=== PATIENT | male | born 1950 | race Caucasian/White ===

== ENCOUNTER 2018-04-24 16:44 | Inpatient (IN) | payer MEDICARE, OTHER ==
[2018-04-24 17:03] LABS: #Basophils 0.1 thou/uL (0.0-0.2); #Eosinphils 0.2 thou/uL (0.0-0.7); #Lymphocytes 1.1 thou/uL (1.20-3.40); #Monocytes 0.4 thou/uL (0.11-0.59); %Basophils 1.5 % (0.0-1.0); %Eosinophils 3.8 % (0.0-10.0); %Lymphocytes 22.9 % (21.0-51.0); %Monocytes 7.5 % (0.0-10.0); %Neutrophils 64.2 % (42.0-75.0); Hemoglobin 11.4 g/dL (14.0-18.0); Mean Corpuscular HGB CONC 31.2 g/dL (32.0-36.0); Mean Corpuscular Hemoglobin 26.2 pg (27.0-31.0); Mean Corpuscular Volume 84.1 fL (78.0-98.0); Mean Platelet Volume 8.1 fL (7.4-10.4); Platelet Count 334 thou/uL (130-400); RBC Distribution Width 13.8 % (11.5-14.5); Red Blood Cell (RBC) Count 4.33 mill/uL (4.70-6.10); White Blood Cell (WBC) Count 4.6 thou/uL (4.8-10.8)
[2018-04-24 17:10] LABS: Prothrombin Time 13.7 SEC (12.0-14.7)
[2018-04-24 17:17] LABS: ALT (SGPT) 21 U/L (8-55); AST (SGOT) 28 U/L (5-34); Albumin 4.7 g/dL (3.4-4.8); Alkaline Phosphatase 147 U/L (40-150); Anion Gap 21 mmol/L (10-20); BUN (Urea Nitrogen) 37 mg/dL (8.4-25.7); Bilirubin, Total 0.5 mg/dL (0.2-1.2); CK (CPK) 51 U/L (30-200); Calc. Creatinine Clearance 0 mL/min (70-130); Calcium 11.4 mg/dL (7.8-10.44); Carbon Dioxide 19 mmol/L (23-31); Chloride 100 mmol/L (98-107); Estimated GFR-MDRD 49; Globulin 4.6 g/dL (2.4-3.5); Glucose 151 mg/dL (80-115); Potassium 5.4 mmol/L (3.5-5.1); Protein, Total 9.3 g/dL (5.8-8.1); Sodium 135 mmol/L (136-145)
[2018-04-24 17:39] LABS: CKMB 1.1 ng/mL (0-6.6)
--- NOTE | 2018-04-24 18:01 | CT ---
CT HEAD NONCONTRAST 04/24/18 HISTORY: Altered mental status. Vascular disease. COMPARISON: 04/04/18. FINDINGS: There is no evidence of acute intracranial hemorrhage or infarct. Lobular encephalomalacia within the left cerebellar hemisphere and an infarct at the left middle cerebellar peduncle have continued to e volve since the prior study. Diffuse cortical atrophy and chronic ischemic small vessel disease are s table. No mass effect or shift of midline structures. Visualized paranasal sinuses remain well aerate d. IMPRESSION: Chronic type findings. No acute intracranial abnormalities are demonstrated. Findings were called to Dr. Manzanares in the Emergency Department at 1456 hours. Code CR POS: [facility]
[2018-04-24 19:58] LABS: Bilirubin Moderate (Negative); Blood, Urine Negative (Negative); Clarity CLEAR (Clear); Glucose, Urine (Dipstick) Negative (Negative); Leukocyte Trace (Negative); Nitrite Negative (Negative); Protein, Urine (Dipstick) 30 mg/dL (Neg-Trace); Specific Gravity, Urine 1.015 (1.002-1.036)
[2018-04-24 20:00] LABS: Bacteria/HPF None Seen HPF (None Seen); Pathc Cast-AUWi Flag 2.03 (0-2.49); RBC/HPF 0-3 HPF (0-3); Squamous Epithelial 0-3 HPF (0-3); WBC/HPF 0-3 HPF (0-3)
[2018-04-24 20:11] LABS: Hyaline Casts/LPF 7-10 HYALINE CAST LPF (0-3 Hyaline)
[2018-04-24 21:01] LABS: Troponin I 0.028 ng/mL (< 0.028)
[2018-04-24 23:32] LABS: Troponin I 0.037 ng/mL (< 0.028)
[2018-04-25] MEDS ORDERED: Acetaminophen 650 MG Suppository PR PRN (10:26)
[2018-04-25] MEDS ORDERED: Ondansetron PF 4 MG/2 ML Vial IVP PRN (10:26)
[2018-04-25] MEDS ORDERED: Dextrose 50% Abboject 50 ML SYRINGE SLOW IVP PRN (10:39)
[2018-04-25] MEDS ORDERED: Dextrose 5% in Water 1,000 ML IV PRN (10:39)
[2018-04-25] MEDS ORDERED: Bisacodyl 10 MG SUPP PR PRN (10:42)
[2018-04-25] MEDS ORDERED: Enoxaparin Sodium 30 MG/0.3 ML SYRINGE SC SCH (11:00)
[2018-04-25 11:30] LABS: Hemoglobin A1c 5.7 % (4.0-6.0)
[2018-04-25] MEDS: Sodium Chloride 0.9% 1,000 ML IV SCH ×2 (12:59→23:41)
--- NOTE | 2018-04-25 15:28 | PDOC.PN ---
- Subjective Encounter Start Date: 04/25/18 Encounter Start Time: 15:22 Mr. Chang was seen today and discussed with Padmini Murillo PA-C. Mr. Chang was brought to the hospital due to concern for declining mental status, and worsening weakness in the past week. His also is concerned that he has been having difficulty swallowing as well. She informs me that he began having strokes in February, and has had 3 prior strokes before his admission today. He was evaluated before by Dr. Xie, as was found to have Vertebral Basal disease. He was placed on aspirin, and a statin, initially, and Plavix was added about a week agao by his Primary Care Physician. - Objective MAR Reviewed: Yes Vital Signs & Weight: Vital Signs (12 hours) Temp Pulse Pulse Pulse Resp BP BP 04/25/18 14:05 97 88 163/78 H 04/25/18 11:34 97.7 F 96 16 04/25/18 08:14 97.2 F L 95 20 164/74 H 04/25/18 07:33 97.2 F L 95 20 04/25/18 04:00 97.3 F L 97 19 BP BP Pulse Ox 04/25/18 14:05 154/72 H 04/25/18 11:34 142/65 H 96 04/25/18 08:14 97 04/25/18 07:33 164/74 H 97 04/25/18 04:00 142/67 H 95 Weight Weight 199 lb 14.4 oz I&O: 04/24/18 04/25/18 04/26/18 06:59 06:59 06:59 Intake Total 0 Output Total 200 Balance 0 -200 Result Diagrams: 04/24/18 16:48 04/24/18 16:48 Additional Labs: Accuchecks 04/25/18 04/25/18 04/24/18 11:56 05:48 16:51 POC Glucose 127 H 105 159 H Phys Exam - Physical Examination + left conjunctival injection, weakness of the left upper eye lid Respiratory: no wheezing, no rales, no rhonchi, clear to auscultation bilateral Cardiovascular: RRR, no significant murmur, no rub Gastrointestinal: soft, non-tender, no distention, positive bowel sounds Musculoskeletal: no edema, pulses present + left lower extremity weakness Dx/Plan (1) Acute CVA (cerebrovascular accident) Code(s): I63.9 - CEREBRAL INFARCTION, UNSPECIFIED Status: Acute (2) Diabetes mellitus type 2 in nonobese Code(s): E11.9 - TYPE 2 DIABETES MELLITUS WITHOUT COMPLICATIONS Status: Acute (3) Hypertension Code(s): I10 - ESSENTIAL (PRIMARY) HYPERTENSION Status: Acute (4) Dysphagia due to recent stroke Code(s): I69.391 - DYSPHAGIA FOLLOWING CEREBRAL INFARCTION Status: Acute - Plan * Altered mental status and worsening weakness and dysphagia- this may be due to stroke in evolution,new CVA or possibly hemorrhagic conversion- await MRI results. Continue aspirin plavix and lipitor * Agree with Neurology Consultation * Dysphagia- discussed with the patient's who was at bedside- she would like alternate means of nutrition, and would like to pursue PEG tube placement. Will place an NG tube, and consult GI for PEG tube placement * HTN- re-start home medications once GI placed- have PRN medications available * DM- will hold Metformin for now, continue SSI
[2018-04-25] MEDS ORDERED: SYSTANE GEL EYE DROP 10 ML 10 GM BOT L EYE PRN (15:30)
--- NOTE | 2018-04-25 16:22 | RAD ---
CHEST 1 VIEW: Date: 04/25/18 HISTORY: Dysphagia. Evaluate for aspiration pneumonia. COMPARISON: None. FINDINGS: Slight elongation of aorta. Normal cardiac silhouette. Pulmonary vessels and hilum are normal. Costop hrenic angles are clear. No masses or consolidation. No pneumothorax or osseous abnormalities. IMPRESSION: No acute cardiopulmonary process. POS: [facility]
[2018-04-25] MEDS: OFLOXACIN EA EYE SCH (19:59)
[2018-04-25] MEDS: [UNRECOGNIZED DRUG - OTHER] L EYE PRN (20:00)
[2018-04-25] MEDS ORDERED: Lisinopril 20 MG TAB PER TUBE SCH (21:00)
--- NOTE | 2018-04-25 22:54 | HP ---
CHIEF COMPLAINT: Altered mental status, weight loss, generalized weakness. HISTORY OF PRESENT ILLNESS: The patient is a 68-year-old male with past medical history significant for hypertension, type 2 diabetes mellitus ( controlled with oral medications), and recent CVA x3 in February of this year, the most recent was March 15, 2018. History is obtained from conversation with his along with review of past medical records as patient has inability to verbalize more than yes or no and gesture. The tells me that actually the patient was quite functional up until February of this year when his strokes began. When he was discharged from hospital in February to a rehab, he was able to walk with his walker, converse, and perform most of his ADLs. On April 13, he did have a swallowing study performed as an outpatient and instructions were given to family members to have him sit upright when trying to eat or swallow his medication, per his . However, over the past week, the patient has been progressively coughing and shows obvious inability to swallow both food and his oral medications. The has also noticed that his gait is becoming more and more labored, and she has noticed worsening generalized weakness. Yesterday, his tells me that he was unable to get himself from the bed into the bathroom and it took both his daughter and his to help him. She reports a 30-pound weight loss since his first stroke was diagnosed on March 07. On arrival to the hospital, his EKG showed sinus tachycardia, no acute ST or T- wave changes. His creatinine was 1.44 and he was mildly hyperkalemic with a potassium serum of 5.4. Upon review of records, prior workup has included a CTA of the neck and head February 2018, which shows severe bilateral stenosis of the vertebral arteries along with [id number] plaquing of the right internal carotid artery estimated at 50% by CTA. Echocardiogram performed in February showed normal left ventricular systolic function and mild diastolic dysfunction. PAST MEDICAL HISTORY: Includes the aforementioned, hypertension, type 2 diabetes mellitus along with psoriatic arthritis which the patient has been on Enbrel. PAST SURGICAL HISTORY: The patient has had a left hand surgery in the past. SOCIAL HISTORY: The patient has a remote history of smoking in the past. He has no current alcohol or illicit drug use. 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 He moved to the area 5 months ago and lives with his . REVIEW OF SYSTEMS: CONSTITUTIONAL: Negative for fever and chills. Positive for weight loss. EYES: Positive for left eye pain and erythema secondary to corneal abrasion. ENT: Negative for injury, pain, and discharge. NECK: Negative for pain and swelling. CARDIOVASCULAR: Negative for chest pain, shortness of breath, and edema. RESPIRATORY: Negative for shortness of breath and wheezing, positive for cough. ABDOMEN/GASTROINTESTINAL: Negative for abdominal pain, nausea, vomiting. BACK: Negative for injury or pain. SKIN: Negative for injury or rash and discoloration. PHYSICAL EXAMINATION: VITAL SIGNS: Blood pressure 142/65, O2 saturation 96% on room air, respirations 16. The patient is afebrile. CONSTITUTIONAL: Awake and alert. Answering questions yes or no appropriately. HEAD AND FACE: Normocephalic, atraumatic. EYES: Left eye shows positive conjunctival erythema. NECK: Trachea midline. No bruits. No JVD. RESPIRATORY: Regular respiratory rate and pattern. Clear to auscultation bilaterally. No rhonchi or wheezes. ABDOMEN: Soft, nontender. Positive bowel sounds. SKIN: Warm and dry. No obvious lesions or rashes. CARDIOVASCULAR: S1, S2. Regular rhythm, mildly tachycardic. Soft systolic grade 1/6 murmur. NEUROLOGIC: Gait is ataxic. Intention tremor to the left hand. ALLERGIES: NO KNOWN DRUG ALLERGIES. HOME MEDICATIONS: 1. Ofloxacin ophthalmic solution one drop each eye q.i.d. 2. Propylene glycol one drop left eye p.r.n. 3. Tramadol 50 mg p.o. q.6 hours p.r.n. 4. Famotidine 20 mg p.o. b.i.d. 5. Tamsulosin 0.4 mg p.o. at bedtime. 6. Atorvastatin 40 mg at bedtime. 7. Metformin 1000 mg p.o. b.i.d. 8. Plavix 70 mg daily. 9. Aspirin 81 mg daily. 10. Amlodipine 10 mg p.o. daily. 11. Finasteride 5 mg daily. 12. Lisinopril 20 mg p.o. b.i.d. PERTINENT LABORATORY DATA: Hemoglobin 11.4, hematocrit 36.4. Sodium 135, potassium 5.4, BUN 37, creatinine 1.44, calcium 11.4. Troponin indeterminate at 0.036 and 0.037. ASSESSMENT: 1. Altered mental status and functional decline in the setting of worsening dehydration and poor oral intake. 2. History of recent CVA x3, most recent March 15, 2018, in the setting of severe bilateral vertebral stenosis. 3. Dysphagia secondary to above with resulting malnutrition. 4. Weight loss and failure to thrive. 5. Type 2 diabetes mellitus. 6. Hypertension. 7. Chronic anemia. 8. Indeterminate troponin in the setting of acute on chronic renal insufficiency. 9. Acute on chronic renal insufficiency secondary to dehydration, creatinine 1.44, baseline is somewhere around 0.9 per review of records. 10. Mild hyperkalemia. 11. History of psoriatic arthritis. 12. Left corneal abrasion. PLAN: The plan is for aggressive fluid resuscitation and close monitoring of his renal function and electrolytes. A long conversation was had with the family of this patient and the patient is a full code. They wish at this time to proceed with NG tube placement along with PEG tube placement. The risks and benefits of this procedure were discussed at length with the patient and his family. We will consult GI along with Dr. Xie from Neurology who has seen the patient in the past. We will hold Plavix in anticipation of PEG tube placement with Dr. Leon. We will continue his other home medications, avoiding any renal insults. Further recommendations based on hospital course. Job ID: [id number] [facility]
[2018-04-25] MEDS: Labetalol HCl 100 MG/20 ML VIAL SLOW IVP PRN (23:41)
[2018-04-26 06:11] LABS: ALT (SGPT) 13 U/L (8-55); AST (SGOT) 23 U/L (5-34); Albumin 3.7 g/dL (3.4-4.8); Alkaline Phosphatase 108 U/L (40-150); Anion Gap 17 mmol/L (10-20); BUN (Urea Nitrogen) 17 mg/dL (8.4-25.7); Bilirubin, Total 0.3 mg/dL (0.2-1.2); Calc. Creatinine Clearance 105 mL/min (70-130); Calcium 10.2 mg/dL (7.8-10.44); Carbon Dioxide 18 mmol/L (23-31); Chloride 110 mmol/L (98-107); Estimated GFR-MDRD 89; Globulin 3.6 g/dL (2.4-3.5); Glucose 94 mg/dL (80-115); Potassium 4.2 mmol/L (3.5-5.1); Protein, Total 7.3 g/dL (5.8-8.1); Sodium 141 mmol/L (136-145)
[2018-04-26] MEDS: Sodium Chloride 0.9% 1,000 ML IV SCH ×2 (08:54→19:28)
[2018-04-26] MEDS: [UNRECOGNIZED DRUG - OTHER] L EYE PRN ×4 (08:57→21:03)
[2018-04-26] MEDS: OFLOXACIN EA EYE SCH ×4 (08:57→21:03)
[2018-04-26] MEDS ORDERED: Clopidogrel Bisulfate 75 MG TAB PER TUBE SCH (09:00)
[2018-04-26] MEDS: Aspirin Chewable 81 MG TAB PER TUBE SCH (09:42)
[2018-04-26] MEDS: Atorvastatin Calcium 40 MG TAB PER TUBE SCH (09:42)
[2018-04-26] MEDS: Famotidine 20 MG TAB PER TUBE SCH (09:42)
[2018-04-26] MEDS: Amlodipine 10 MG TAB PER TUBE SCH (09:42)
--- NOTE | 2018-04-26 10:03 | PDOC.PN ---
- Subjective Encounter Start Date: 04/26/18 Encounter Start Time: 10:01 Mr. Chang was seen today in follow-up of acute CVA and worsening metabolic encephalopathy. He is awake and alert, and tring to answer a few questions. - Objective MAR Reviewed: Yes Vital Signs & Weight: Vital Signs (12 hours) Temp Pulse Resp BP Pulse Ox 04/26/18 09:42 73 04/26/18 07:46 97.6 F 73 20 160/75 H 94 L 04/26/18 04:00 97.3 F L 73 16 161/73 H 95 04/26/18 00:20 176/81 H 04/26/18 00:00 98.1 F 77 16 182/83 H 99 Weight Weight 199 lb I&O: 04/25/18 04/26/18 04/27/18 06:59 06:59 06:59 Intake Total 0 Output Total 425 Balance 0 -425 Result Diagrams: 04/24/18 16:48 04/26/18 05:11 Additional Labs: Accuchecks 04/25/18 04/25/18 04/25/18 19:33 17:02 11:56 POC Glucose 117 H 124 H 127 H Phys Exam - Physical Examination HEENT: PERRLA + conjunctival injection Respiratory: no wheezing, no rales, no rhonchi, clear to auscultation bilateral Cardiovascular: RRR, no significant murmur, no rub Gastrointestinal: soft, non-tender, no distention, positive bowel sounds Musculoskeletal: pulses present, edema present trace pedal edema Left lower extremity weakness Dx/Plan (1) Metabolic encephalopathy Code(s): G93.41 - METABOLIC ENCEPHALOPATHY Status: Acute (2) Acute CVA (cerebrovascular accident) Code(s): I63.9 - CEREBRAL INFARCTION, UNSPECIFIED Status: Acute (3) Diabetes mellitus type 2 in nonobese Code(s): E11.9 - TYPE 2 DIABETES MELLITUS WITHOUT COMPLICATIONS Status: Acute (4) Hypertension Code(s): I10 - ESSENTIAL (PRIMARY) HYPERTENSION Status: Acute (5) Dysphagia due to recent stroke Code(s): I69.391 - DYSPHAGIA FOLLOWING CEREBRAL INFARCTION Status: Acute - Plan * CVA with metabolic encephalopathy- still awaiting the official read on the MRI - either stroke in evolution, new CVA or hemorrhagic conversion * Await Neurology input * Dysphagia- plan is for PEG tube tomorrow- patient refused DHT placement in the interim * HTN - blood pressure is a bit elevated- he is NPO - will continue PRN medications * DM- blood glucose is stable
[2018-04-26] MEDS: Labetalol HCl 100 MG/20 ML VIAL SLOW IVP PRN (17:14)
--- NOTE | 2018-04-26 17:23 | PDOC.EVN ---
Event Note - Event Note Event Note: MRI results are not yet visible in the electronic record, however I spoke with the radiologist learning and development consultant who informs me that the MRI has been read. There is evidence of new infarction in the cerebellum, and right corpus collusom. Will await the remained of the report. I have left a message with the business analytics faculty member department.
[2018-04-26] MEDS ORDERED: Lorazepam 0.5 MG TAB PO PRN ×2 (17:51→17:52)
--- NOTE | 2018-04-26 22:30 | CON ---
DATE OF CONSULTATION: 04/26/2018 CONSULTING PHYSICIAN: Hospitalist Service IMPRESSION: 1. 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 2. 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 3. Prior bilateral cerebellar infarcts. 4. Diabetes. 5. Hypertension. PLAN: 1. Restart antiplatelet therapy after his PEG tube is placed. 2. Restart antihypertensives as well. 3. Continue management of the Lacy palsy with patching and Lacri-Lube. 4. Transfer to rehab after he is stabilized. HISTORY OF PRESENT ILLNESS: Mr. Chang is a 68-year-old man who was admitted in February with cerebellar infarcts. He was transferred over to rehab and started to report that two weeks ago he developed left facial paresis. This resulted in a secondary corneal abrasion. In the last few days, he became much more dysarthric. After admission, he has developed some progressive weakness on his left side. He denies any headache, nausea, vomiting, vertigo, headache, or new numbness. He apparently was having numbness on the left side of the face prior to the admission. MRI of the brain was reviewed, shows an acute area of infarction involving the posterior corpus callosum and prior ischemic injury to both cerebellum. On exam, he is alert and cooperative. His speech is severely dysarthric. There is facial weakness on the left including the brow, eye closure, and lower face. Sensation is subjectively decreased on the left side. Eye movements are intact. Tongue protrudes to the center. He has only 2/5 strength in the left arm and roughly 3/5 in the left leg. Plantar responses are upgoing. Gait is not testable. No abnormal movements are seen. Unfortunate gentleman who has had a series of problems over the last month. His new stroke is in a very unusual location, but relatively small, hold out a reasonable prognosis for recovery. Cerebellar infarcts should heal quite nicely with a bit of time. His left facial weakness due to a peripheral 7th nerve injury is not uncommon with diabetes, but usually has a good prognosis and may improve over the next 2-3 months. We would continue his prior treatment which essentially was maximum medical therapy at this point. Job ID: [id number]
[2018-04-27] MEDS: Lorazepam 2 MG/ML VIAL SLOW IVP PRN ×2 (00:48→20:40)
[2018-04-27 05:54] LABS: Anion Gap 16 mmol/L (10-20); BUN (Urea Nitrogen) 13 mg/dL (8.4-25.7); Calc. Creatinine Clearance 96 mL/min (70-130); Carbon Dioxide 19 mmol/L (23-31); Chloride 109 mmol/L (98-107); Estimated GFR-MDRD 81; Glucose 92 mg/dL (80-115); Potassium 4.1 mmol/L (3.5-5.1); Sodium 140 mmol/L (136-145)
--- NOTE | 2018-04-27 07:54 | CON ---
DATE OF CONSULTATION: 04/26/2018 REASON FOR CONSULTATION: Poor oral intake, generalized weakness, and possible dysphagia. I was asked to see the patient for possible endoscopic gastrostomy tube placement. HISTORY OF PRESENT ILLNESS: The patient was seen in the room along with the patient's who gives most of the history at this time. Mr. Mainor Chang is a very pleasant 68-year-old male who moved to this area about 5 months ago. His primary care doctor is Dr. Lennox Ocampo. The patient has a history of type 2 diabetes mellitus, hypertension. The patient has had CVA in February of 2018 and was placed on aspirin. The patient was seen by Dr. Xie in consultation. The patient apparently was in the rehab unit for a while and after he went home. He was doing actually well, ambulating and eating well. It looks apparently like he has had a stroke with altered mental status. Has slurriness of speech. The patient had not been eating very well over the last several days. The patient was hospitalized because of generalized weakness, altered mental status and also . The patient was started on Plavix a week ago by Dr. Lennox Ocampo. The patient had a CAT scan and MRI done as outpatient and was told to have worsening stroke and was placed on Plavix. The patient is also not able to eat well. When he tries to drink water, he coughs and chokes as well per the patient's . His oral intake is very poor. The patient is awake and alert, but does not really communicate very well. He is slow to talk. Does not have fevers. Most of the history was obtained from the patient's . MEDICAL ILLNESSES: 1. Type 2 diabetes mellitus. 2. Hypertension. 3. Psoriatic arthritis. 4. Recent CVA. PAST SURGICAL HISTORY: Left hand surgery in the past. SOCIAL HISTORY: The patient is a former smoker. No history of alcohol intake. REVIEW OF SYSTEMS: Unremarkable except for generalized weakness and altered mental status and oral dysphagia. PHYSICAL EXAMINATION: GENERAL: Appears comfortable. VITAL SIGNS: Afebrile, pulse is 78, blood pressure 142/63. HEENT: Conjunctivae, no icterus. NECK: Supple. No adenitis or thyromegaly noted. CARDIOVASCULAR SYSTEM: First and second heart sounds heard. LUNGS: Clear to auscultation. ABDOMEN: Soft. Abdomen is nontender. bowel sounds. No organomegaly or masses. EXTREMITIES: Reveal no edema. LABORATORY DATA: CBC; WBC 4600, hemoglobin 11.4, hematocrit 36.4, MCV 84.1, platelet count 334,000. Chemistry panel; sodium is 145, potassium 4.2, chloride 110, bicarb 18, BUN is 17, creatinine is 0.85. Calcium 10.2. LFTs are normal. Coagulation; PT is 13.7, INR is 1. CLINICAL IMPRESSION: A 68-year-old unfortunate male with cerebrovascular accident, dysphagia. He will definitely benefit from endoscopic gastrostomy placement. A long talk with the patient's and explained about the procedure in detail. The patient had not taken Plavix today and also the last couple of days. We will hold on Plavix and plan for EGD and PEG tube placement on 04/27/2018. Job ID: [id number]
[2018-04-27] MEDS ORDERED: Ondansetron HCl/PF 4 MG/2 ML Vial IVP PRN (08:54)
[2018-04-27] MEDS: Sodium Chloride 0.9% 1,000 ML IV SCH ×2 (11:52→20:40)
[2018-04-27] MEDS: Amlodipine 10 MG TAB PER TUBE SCH (11:53)
[2018-04-27] MEDS: OFLOXACIN EA EYE SCH ×4 (11:53→21:43)
[2018-04-27] MEDS: Famotidine 20 MG TAB PER TUBE SCH (11:53)
[2018-04-27] MEDS: Atorvastatin Calcium 40 MG TAB PER TUBE SCH (11:54)
[2018-04-27] MEDS ORDERED: Lidocaine 1% PF 5 ML VIAL ONE (13:45)
[2018-04-27] MEDS ORDERED: PROPOFOL 200 MG/20 ML VIAL ONE (13:45)
[2018-04-27] MEDS: [UNRECOGNIZED DRUG - OTHER] L EYE PRN ×3 (15:01→21:44)
--- NOTE | 2018-04-27 15:13 | PDOC.PN ---
- Subjective Encounter Start Date: 04/27/18 Encounter Start Time: 14:00 Mr. Chang was seen today in follow-up of acute CVA. He does not have any complaints. - Objective MAR Reviewed: Yes Vital Signs & Weight: Vital Signs (12 hours) Temp Pulse Resp BP Pulse Ox 04/27/18 11:53 60 04/27/18 11:26 98 F 60 20 158/72 H 98 04/27/18 09:35 95 04/27/18 07:45 97.9 F 70 20 161/71 H 94 L 04/27/18 04:42 158/71 H 04/27/18 04:00 97.4 F L 82 19 180/79 H 96 Weight Weight 198 lb 9.6 oz I&O: 04/26/18 04/27/18 04/28/18 06:59 06:59 06:59 Output Total 425 350 Balance -425 -350 Result Diagrams: 04/24/18 16:48 04/27/18 05:11 Additional Labs: Accuchecks 04/27/18 04/27/18 04/26/18 10:45 05:46 19:59 POC Glucose 116 H 95 123 H 04/26/18 16:51 POC Glucose 120 H Phys Exam - Physical Examination HEENT: PERRLA Respiratory: no wheezing, no rales, no rhonchi, clear to auscultation bilateral Cardiovascular: RRR, no significant murmur, no rub Gastrointestinal: soft, non-tender, positive bowel sounds Musculoskeletal: no edema Deviation from normal: + left 7th nerve palsy, and left leg weakness Dx/Plan (1) Metabolic encephalopathy Code(s): G93.41 - METABOLIC ENCEPHALOPATHY Status: Acute (2) Acute CVA (cerebrovascular accident) Code(s): I63.9 - CEREBRAL INFARCTION, UNSPECIFIED Status: Acute (3) Diabetes mellitus type 2 in nonobese Code(s): E11.9 - TYPE 2 DIABETES MELLITUS WITHOUT COMPLICATIONS Status: Acute (4) Hypertension Code(s): I10 - ESSENTIAL (PRIMARY) HYPERTENSION Status: Acute (5) Dysphagia due to recent stroke Code(s): I69.391 - DYSPHAGIA FOLLOWING CEREBRAL INFARCTION Status: Acute - Plan * Acute Cerebellar CVA- continue aspirin and statin therapy * Dyspaghia due to acute CVA- he has PEG tube placed, and tube feeds have been initiated * HTN- blood pressure medications have been re-started, and will trend * DM- blood glucose is stable * Discussed treatment going forward- his does not feel she can handle lifting him, and assisting him with ADL's at least while in his present condition- will place a custodial referral- for PT due to the new CVA.
[2018-04-27] MEDS ORDERED: Nitroglycerin 0.4 MG TAB (25 Tab Bottle) SL SCH (17:45)
[2018-04-27] MEDS: Aspirin Chewable 81 MG TAB PER TUBE SCH ×2 (17:57→19:13)
[2018-04-27 18:25] LABS: Troponin I 0.034 ng/mL (< 0.028)
[2018-04-27] MEDS ORDERED: Lisinopril 5 MG TAB PO SCH (18:55)
[2018-04-27] MEDS: Acetaminophen 325 MG TAB PO PRN (20:40)
--- NOTE | 2018-04-27 22:05 | OP ---
DATE OF PROCEDURE: 04/27/2018 PROCEDURES PERFORMED: 1. Esophagogastroduodenoscopy. 2. Endoscopic gastrostomy tube placement. PREOPERATIVE DIAGNOSIS: Dysphagia, . POSTOPERATIVE DIAGNOSES: 1. Hiatal hernia, otherwise normal exam. 2. Status post gastrostomy tube placement. DESCRIPTION OF PROCEDURE: The patient was placed on his back and the throat was anesthetized with viscous Xylocaine spray. The patient was given sedation. The patient was given IV Ancef 2 g before the procedure. A bite-block was placed. A Pentax video gastroscope under direct vision passed down the oropharynx to the GE junction into the stomach and subsequently into the descending duodenum. The duodenal bulb and descending duodenum, no pathology. The gastric antrum, incisura angularis, fundus or cardia, no pathology. He does have hiatal hernia. The gastrostomy tube site was marked by transillumination with it and also by applying finger pressure to confirm the right spot. The spot was cleaned and surgically prepped. The site was anesthetized with 1% Xylocaine infiltration. Over the site, a 16 Angiocath was advanced into the stomach. Through the Angiocath, a guidewire was advanced into the stomach. The guidewire was grasped with polypectomy snare and pulled outside the mouth. To the end of the guidewire protruding outside the mouth, a the gastrostomy tube was connected. The wire was pulled back retrograde and left in place. A 0.5 cm incision was made in skin to facilitate the passage of the tube. The patient was re-scoped again. No complication or any bleeding seen. The stomach decompressed and the scope was removed. RECOMMENDATION: 1. N.p.o. until 1:00 p.m. 2. Start tube feeding after 1:00 p.m. today. Job ID: [id number]
[2018-04-27 22:06] LABS: Troponin I 0.031 ng/mL (< 0.028)
[2018-04-28] MEDS ORDERED: diphenhydrAMINE 50 MG/ML VIAL IVP SCH (01:00)
[2018-04-28] MEDS: Acetaminophen 325 MG TAB PO PRN ×3 (03:20→21:07)
[2018-04-28] MEDS: Sodium Chloride 0.9% 1,000 ML IV SCH ×2 (06:52→17:24)
[2018-04-28] MEDS: Atorvastatin Calcium 40 MG TAB PER TUBE SCH (08:33)
[2018-04-28] MEDS: Lisinopril 5 MG TAB PER TUBE SCH (08:33)
[2018-04-28] MEDS: Amlodipine 10 MG TAB PER TUBE SCH (08:33)
[2018-04-28] MEDS: OFLOXACIN EA EYE SCH ×4 (08:34→21:06)
[2018-04-28] MEDS: Famotidine 20 MG TAB PER TUBE SCH (08:34)
[2018-04-28] MEDS: [UNRECOGNIZED DRUG - OTHER] L EYE PRN ×4 (08:54→21:06)
[2018-04-28] MEDS ORDERED: Lisinopril 5 MG TAB PO SCH (09:00)
[2018-04-28] MEDS: HumaLOG 300 UNITS/3 ML VIAL SC PRN ×3 (11:27→21:08)
--- NOTE | 2018-04-28 13:29 | PRG ---
DATE OF SERVICE: 04/28/2018 SUBJECTIVE: Mr. Chang is not able to give any history. Daughter at the bedside and nurses note he has done well with tube feeds and is tolerating tube feeds well. He had a PEG tube placed yesterday for dysphagia related to his CVA. Medications reviewed. OBJECTIVE: VITAL SIGNS: Temperature is 98, pulse 72, blood pressure 164/98, and respirations 16. ABDOMEN: The PEG tube is warm and dry with no evidence of drainage or discharge. Bumper was loosened. ASSESSMENT AND PLAN: Status post PEG tube. The daughter notes he picks at that and she is a little bit worried he will pick at the PEG tube. I have asked the nurses to place an abdominal binder on it. We will sign off and follow from a distance at this time. Job ID: [id number]
--- NOTE | 2018-04-28 13:38 | PDOC.PN ---
- Subjective Encounter Start Date: 04/28/18 Encounter Start Time: 10:30 Mr. Chang was seen today in follow-up of acute CVA . He does not have any complaints this morning. - Objective MAR Reviewed: Yes Vital Signs & Weight: Vital Signs (12 hours) Temp Pulse Pulse Pulse Resp BP BP 04/28/18 12:00 98.3 F 72 90 81 16 164/73 H 04/28/18 08:33 68 163/72 H 04/28/18 08:20 68 163/72 H 04/28/18 07:39 97.6 F 76 17 04/28/18 04:27 97.7 F 70 18 BP BP Pulse Ox Pulse Ox 04/28/18 12:00 169/72 H 164/98 H 95 96 04/28/18 08:33 97 04/28/18 08:20 04/28/18 07:39 171/73 H 97 04/28/18 04:27 161/72 H 96 Weight Weight 197 lb 7 oz I&O: 04/27/18 04/28/18 04/29/18 06:59 06:59 06:59 Intake Total 30 30 Output Total 350 Balance -350 30 30 Result Diagrams: 04/24/18 16:48 04/27/18 05:11 Additional Labs: Accuchecks 04/28/18 04/28/18 04/27/18 10:46 05:54 21:15 POC Glucose 191 H 153 H 146 H 04/27/18 16:39 POC Glucose 141 H Phys Exam - Physical Examination HEENT: PERRLA + conjunctival injection left eye Respiratory: no wheezing, no rales, no rhonchi, clear to auscultation bilateral Cardiovascular: RRR, no significant murmur, no rub Gastrointestinal: soft, non-tender, no distention, positive bowel sounds Musculoskeletal: pulses present, edema present trace pedal edema + left sided weakness, and left facial pararesis Dx/Plan (1) Acute CVA (cerebrovascular accident) Code(s): I63.9 - CEREBRAL INFARCTION, UNSPECIFIED Status: Acute (2) Metabolic encephalopathy Code(s): G93.41 - METABOLIC ENCEPHALOPATHY Status: Acute (3) Diabetes mellitus type 2 in nonobese Code(s): E11.9 - TYPE 2 DIABETES MELLITUS WITHOUT COMPLICATIONS Status: Acute (4) Hypertension Code(s): I10 - ESSENTIAL (PRIMARY) HYPERTENSION Status: Acute (5) Dysphagia due to recent stroke Code(s): I69.391 - DYSPHAGIA FOLLOWING CEREBRAL INFARCTION Status: Acute - Plan * 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 * Continue PT/OT * HTN- blood pressure has been elevated- will add Lisinopril * DM- blood glucose is stable * The patient has requested to go the [facility]
[2018-04-28] MEDS: Aspirin Chewable 81 MG TAB PER TUBE SCH (17:24)
[2018-04-28] MEDS: Tamsulosin HCl 0.4 MG CAP PO SCH (21:06)
[2018-04-28] MEDS: Lorazepam 2 MG/ML VIAL SLOW IVP PRN (21:09)
[2018-04-29] MEDS: Acetaminophen 325 MG TAB PO PRN ×2 (01:19→09:44)
[2018-04-29] MEDS ORDERED: diphenhydrAMINE 50 MG/ML VIAL IVP PRN (01:41)
[2018-04-29] MEDS: Sodium Chloride 0.9% 1,000 ML IV SCH ×2 (06:03→17:39)
[2018-04-29] MEDS: Lisinopril 5 MG TAB PER TUBE SCH (09:44)
[2018-04-29] MEDS: Atorvastatin Calcium 40 MG TAB PER TUBE SCH (09:45)
[2018-04-29] MEDS: Amlodipine 10 MG TAB PER TUBE SCH (09:45)
[2018-04-29] MEDS: OFLOXACIN EA EYE SCH ×4 (09:45→20:38)
[2018-04-29] MEDS: Famotidine 20 MG TAB PER TUBE SCH (09:45)
[2018-04-29] MEDS ORDERED: Milk Of Magnesia 30 ML UDCUP PO PRN (10:44)
[2018-04-29] MEDS: HumaLOG 300 UNITS/3 ML VIAL SC PRN ×3 (10:54→20:38)
--- NOTE | 2018-04-29 11:21 | PDOC.PN ---
- Subjective Encounter Start Date: 04/29/18 Encounter Start Time: 11:20 Mr. Chang was seen today in follow-up of acute CVA with left sided weakness and dysphagia. He indicates no concerns today - Objective MAR Reviewed: Yes Vital Signs & Weight: Vital Signs (12 hours) Temp Pulse Resp BP BP Pulse Ox 04/29/18 09:45 72 172/74 H 04/29/18 09:44 72 172/74 H 04/29/18 07:35 98.1 F 72 20 172/74 H 94 L 04/29/18 04:00 97.7 F 61 16 173/72 H 97 04/29/18 00:00 97.5 F L 74 16 175/80 H 96 Weight Weight 204 lb 5 oz I&O: 04/28/18 04/29/18 04/30/18 06:59 06:59 06:59 Intake Total 30 90 1660 Balance 30 90 1660 Result Diagrams: 04/24/18 16:48 04/27/18 05:11 Additional Labs: Accuchecks 04/29/18 04/29/18 04/28/18 10:30 05:54 21:04 POC Glucose 193 H 169 H 191 H 04/28/18 16:51 POC Glucose 186 H Phys Exam - Physical Examination HEENT: PERRLA conjunctival injection of the left eye Respiratory: no wheezing, no rales, no rhonchi, clear to auscultation bilateral Cardiovascular: RRR, no significant murmur, no rub Gastrointestinal: soft, non-tender, no distention, positive bowel sounds Musculoskeletal: pulses present, edema present trace pedal edema Left sided weakness, and left 7th nerve paresis Dx/Plan (1) Acute CVA (cerebrovascular accident) Code(s): I63.9 - CEREBRAL INFARCTION, UNSPECIFIED Status: Acute (2) Metabolic encephalopathy Code(s): G93.41 - METABOLIC ENCEPHALOPATHY Status: Acute (3) Diabetes mellitus type 2 in nonobese Code(s): E11.9 - TYPE 2 DIABETES MELLITUS WITHOUT COMPLICATIONS Status: Acute (4) Hypertension Code(s): I10 - ESSENTIAL (PRIMARY) HYPERTENSION Status: Acute (5) Dysphagia due to recent stroke Code(s): I69.391 - DYSPHAGIA FOLLOWING CEREBRAL INFARCTION Status: Acute - Plan * Acute CVA- with left sided weakness and dysphagia- he is post PEG tube placement * HTN- blood pressure continues to be elevated- will continue to titrate medications as needed * DM- blood glucose is stable * Continue aspirin ant statin therapy * Screen for [facility].
[2018-04-29 11:37] LABS: #Eosinphils 0.2 thou/uL (0.0-0.7); #Lymphocytes 0.8 thou/uL (1.20-3.40); #Monocytes 0.4 thou/uL (0.11-0.59); #Neutrophils 1.6 thou/uL (1.40-6.50); %Basophils 1.5 % (0.0-1.0); %Eosinophils 6.4 % (0.0-10.0); %Lymphocytes 26.9 % (21.0-51.0); %Monocytes 13.6 % (0.0-10.0); %Neutrophils 51.6 % (42.0-75.0); Hemoglobin 9.2 g/dL (14.0-18.0); Mean Corpuscular HGB CONC 31.9 g/dL (32.0-36.0); Mean Corpuscular Volume 84.6 fL (78.0-98.0); Mean Platelet Volume 7.5 fL (7.4-10.4); Platelet Count 204 thou/uL (130-400); RBC Distribution Width 13.5 % (11.5-14.5); Red Blood Cell (RBC) Count 3.42 mill/uL (4.70-6.10)
[2018-04-29 11:56] LABS: Anion Gap 13 mmol/L (10-20); BUN (Urea Nitrogen) 13 mg/dL (8.4-25.7); Calc. Creatinine Clearance 113 mL/min (70-130); Calcium 9.8 mg/dL (7.8-10.44); Carbon Dioxide 23 mmol/L (23-31); Chloride 105 mmol/L (98-107); Estimated GFR-MDRD Greater than 90; Glucose 190 mg/dL (80-115); Potassium 3.7 mmol/L (3.5-5.1); Sodium 137 mmol/L (136-145)
[2018-04-29] MEDS: Aspirin Chewable 81 MG TAB PER TUBE SCH (17:24)
[2018-04-29] MEDS: [UNRECOGNIZED DRUG - OTHER] L EYE PRN (17:24)
[2018-04-29] MEDS: Tamsulosin HCl 0.4 MG CAP PO SCH (20:38)
[2018-04-30] MEDS: HumaLOG 300 UNITS/3 ML VIAL SC PRN ×4 (06:33→22:40)
[2018-04-30] MEDS: Lisinopril 5 MG TAB PER TUBE SCH (08:59)
[2018-04-30] MEDS: Atorvastatin Calcium 40 MG TAB PER TUBE SCH (08:59)
[2018-04-30] MEDS: Famotidine 20 MG TAB PER TUBE SCH (08:59)
[2018-04-30] MEDS: Amlodipine 10 MG TAB PER TUBE SCH (09:00)
--- NOTE | 2018-04-30 09:17 | PDOC.PN ---
- Subjective Encounter Start Date: 04/30/18 Encounter Start Time: 09:16 Follow up left side weakness and dysphagia. PEG tube placed 3/3, tolerating tube feeds. Denies pain. No nausea or vomiting. Spoke with bedside RN, no acute overnight events. - Objective Vital Signs & Weight: Vital Signs (12 hours) Temp Pulse Resp BP Pulse Ox 04/30/18 07:36 98.1 F 88 18 153/72 H 95 04/30/18 04:00 98.2 F 82 18 168/69 H 93 L 04/30/18 00:00 97.9 F 81 16 157/73 H 94 L Weight Weight 203 lb 12.8 oz I&O: 04/29/18 04/30/18 05/01/18 06:59 06:59 06:59 Intake Total 90 4080 Balance 90 4080 Result Diagrams: 04/29/18 11:17 04/29/18 11:17 Additional Labs: Accuchecks 04/30/18 04/29/18 04/29/18 06:16 20:35 16:44 POC Glucose 198 H 171 H 210 H 04/29/18 10:30 POC Glucose 193 H Phys Exam - Physical Examination Constitutional: NAD injection left eye conjunctiva present, mm dry Neck: supple, full ROM Respiratory: clear to auscultation bilateral Cardiovascular: RRR Gastrointestinal: soft, non-tender, no distention PEG tube in place Musculoskeletal: no edema Left upper and lower ext weakness, dysarthria Skin: no rash Dx/Plan (1) Acute CVA (cerebrovascular accident) Code(s): I63.9 - CEREBRAL INFARCTION, UNSPECIFIED Status: Acute (2) Diabetes mellitus type 2 in nonobese Code(s): E11.9 - TYPE 2 DIABETES MELLITUS WITHOUT COMPLICATIONS Status: Acute (3) Dysphagia due to recent stroke Code(s): I69.391 - DYSPHAGIA FOLLOWING CEREBRAL INFARCTION Status: Acute (4) Hypertension Code(s): I10 - ESSENTIAL (PRIMARY) HYPERTENSION Status: Acute (5) Metabolic encephalopathy Code(s): G93.41 - METABOLIC ENCEPHALOPATHY Status: Acute - Plan * 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
[2018-04-30] MEDS: OFLOXACIN EA EYE SCH ×4 (09:30→22:13)
[2018-04-30] MEDS: metFORMIN 500 MG TAB PER TUBE SCH (16:19)
[2018-04-30] MEDS: [UNRECOGNIZED DRUG - OTHER] L EYE PRN (16:19)
[2018-04-30] MEDS: Aspirin Chewable 81 MG TAB PER TUBE SCH (18:34)
[2018-04-30] MEDS: Lisinopril 10 MG TAB PER TUBE SCH (22:12)
[2018-04-30] MEDS: Tamsulosin HCl 0.4 MG CAP PO SCH (22:14)
[2018-04-30] MEDS: Lorazepam 2 MG/ML VIAL SLOW IVP PRN (22:20)
[2018-05-01 05:22] LABS: Anion Gap 15 mmol/L (10-20); BUN (Urea Nitrogen) 14 mg/dL (8.4-25.7); Calc. Creatinine Clearance 111 mL/min (70-130); Calcium 10.3 mg/dL (7.8-10.44); Carbon Dioxide 26 mmol/L (23-31); Chloride 100 mmol/L (98-107); Estimated GFR-MDRD Greater than 90; Glucose 187 mg/dL (80-115); Potassium 3.9 mmol/L (3.5-5.1); Sodium 137 mmol/L (136-145)
[2018-05-01 05:37] LABS: Eosinophils 3 % (0-10); Hemoglobin 9.8 g/dL (14.0-18.0); Lymphocytes 39 % (21-51); MDiff Complete? YES; Mean Corpuscular HGB CONC 31.6 g/dL (32.0-36.0); Mean Corpuscular Hemoglobin 26.7 pg (27.0-31.0); Mean Corpuscular Volume 84.5 fL (78.0-98.0); Monocytes 10 % (0-10); Neutrophil 48 % (42-75); Platelet Count 206 thou/uL (130-400); RBC Distribution Width 14.1 % (11.5-14.5); Red Blood Cell (RBC) Count 3.65 mill/uL (4.70-6.10); White Blood Cell (WBC) Count 4.4 thou/uL (4.8-10.8)
[2018-05-01] MEDS: HumaLOG 300 UNITS/3 ML VIAL SC PRN ×3 (06:37→18:21)
--- NOTE | 2018-05-01 09:30 | PDOC.PN ---
- Subjective Encounter Start Date: 05/01/18 Encounter Start Time: 08:45 Subjective: awake, has dysarthria mostly aphasic -: not in distress, tries to communicate - Objective MAR Reviewed: Yes Vital Signs & Weight: Vital Signs (12 hours) Temp Pulse Resp BP BP Pulse Ox 05/01/18 07:51 98.2 F 116 H 18 158/81 H 96 05/01/18 04:00 97.9 F 96 19 138/63 94 L 05/01/18 00:00 98.6 F 105 H 19 141/61 H 93 L 04/30/18 22:12 161/72 H Weight Admit Weight 202 lb 4.8 oz Weight 202 lb I&O: 04/30/18 05/01/18 05/02/18 06:59 06:59 06:59 Intake Total 4080 2738 Balance 4080 2738 Result Diagrams: 05/01/18 04:43 05/01/18 04:43 Additional Labs: Accuchecks 05/01/18 04/30/18 04/30/18 05:53 19:45 16:46 POC Glucose 227 H 210 H 277 H 04/30/18 10:49 POC Glucose 188 H Phys Exam - Physical Examination HEENT: PERRLA, moist MMs left eye redness, pupil is reacting to light, not sure if he can see in it Neck: no JVD, supple Respiratory: no wheezing, no rales Cardiovascular: RRR, no significant murmur Gastrointestinal: soft, non-tender, positive bowel sounds peg+ Musculoskeletal: no edema, pulses present left hemiplegia, aphasia, dysphagia Dx/Plan (1) Acute CVA (cerebrovascular accident) Code(s): I63.9 - CEREBRAL INFARCTION, UNSPECIFIED Status: Acute Comment: left hemiplegia, dysphagia and aphasia (2) H/O: CVA (cerebrovascular accident) Code(s): Z86.73 - PRSNL HX OF TIA (TIA), AND CEREB INFRC W/O RESID DEFICITS Status: Chronic Comment: old left cerebellar and left middle cerebellar peduncle cva (3) Dyslipidemia Code(s): E78.5 - HYPERLIPIDEMIA, UNSPECIFIED Status: Chronic (4) Anemia Code(s): D64.9 - ANEMIA, UNSPECIFIED Status: Chronic Qualifiers: Anemia type: unspecified type Qualified Code(s): D64.9 - Anemia, unspecified (5) BPH (benign prostatic hyperplasia) Code(s): N40.0 - BENIGN PROSTATIC HYPERPLASIA WITHOUT LOWER URINRY TRACT SYMP Status: Chronic Qualifiers: Lower urinary tract symptom presence: symptoms absent Qualified Code(s): N40.0 - Benign prostatic hyperplasia without lower urinary tract symptoms (6) Diabetes mellitus type 2 in nonobese Code(s): E11.9 - TYPE 2 DIABETES MELLITUS WITHOUT COMPLICATIONS Status: Chronic (7) Dysphagia due to recent stroke Code(s): I69.391 - DYSPHAGIA FOLLOWING CEREBRAL INFARCTION Status: Acute Comment: s/p peg (8) Hypertension Code(s): I10 - ESSENTIAL (PRIMARY) HYPERTENSION Status: Chronic Qualifiers: Hypertension type: essential hypertension Qualified Code(s): I10 - Essential (primary) hypertension (9) Metabolic encephalopathy Code(s): G93.41 - METABOLIC ENCEPHALOPATHY Status: Acute Comment: resolving - Plan neurologically stable -: awaiting rehab placement, may dc if accepted -: has outpt f/u for his left eye chronic issue, will need to see them in 1 wk -: continue asp, plavix, lipitor, norvasc, lopressor, lisinopril -: on metformin, proscar and flomax * . to mobilize with PT, speech ongoing eval. Tube feeding, free water. Review of Systems - Medications/Allergies Allergies/Adverse Reactions: Allergies Allergy/AdvReac Type Severity Reaction Status Date / Time No Known Allergies Allergy Verified 04/25/18 01:38 Medications: Current Medications Acetaminophen (Tylenol) 650 mg DC Q4H PRN PRN Reason: Headache/Fever/Mild Pain (1-3) Acetaminophen (Tylenol) 650 mg PO Q6H PRN PRN Reason: Fever/Mild Pain Last Admin: 04/29/18 09:44 Dose: 650 mg Amlodipine Besylate (Norvasc) 10 mg PER TUBE DAILY [facility] Last Admin: 04/30/18 09:00 Dose: 10 mg Aspirin (Aspirin Chewable) 81 mg PER TUBE 1800 [facility] Last Admin: 04/30/18 18:34 Dose: 81 mg Atorvastatin Calcium (Lipitor) 40 mg PER TUBE DAILY [facility] Last Admin: 04/30/18 08:59 Dose: 40 mg Bisacodyl (Dulcolax) 10 mg DC DAILYPRN PRN PRN Reason: Constipation Clopidogrel Bisulfate (Plavix) 75 mg PER TUBE DAILY [facility] Dextrose/Water (Dextrose 50%) 25 gm SLOW IVP PRN PRN PRN Reason: Hypoglycemia Diphenhydramine HCl (Benadryl) 50 mg IVP Q3H PRN PRN Reason: Itching & Insomnia Last Admin: 04/29/18 01:43 Dose: 50 mg Enoxaparin Sodium (Lovenox) 40 mg SC 0900 [facility] Famotidine (Pepcid) 20 mg PER TUBE DAILY [facility] Last Admin: 04/30/18 08:59 Dose: 20 mg Finasteride (Proscar) 5 mg PO DAILY [facility] Glucagon (Glucagon) 1 mg IM PRN PRN PRN Reason: Hypoglycemia Dextrose/Water (D5w) 1,000 mls @ 0 mls/hr IV .Q0M PRN PRN Reason: Hypoglycemia Insulin Human Lispro (Humalog) 0 units SC .MILD SLIDING SCALE PRN PRN Reason: Mild Correctional Scale Last Admin: 05/01/18 06:37 Dose: 3 unit Labetalol HCl (Normodyne) 20 mg SLOW IVP Q4H PRN PRN Reason: SBP > 180 and HR >/= 70 Last Admin: 04/26/18 17:14 Dose: 20 mg Lisinopril (Zestril) 10 mg PER TUBE BID [facility] Last Admin: 04/30/18 22:12 Dose: 10 mg Lorazepam (Ativan) 0.5 mg SLOW IVP Q6H PRN PRN Reason: ANXIETY/AGITATION Last Admin: 04/30/18 22:20 Dose: 0.5 mg Magnesium Hydroxide (Milk Of Magnesium) 30 ml PO DAILYPRN PRN PRN Reason: Constipation Last Admin: 04/29/18 12:32 Dose: 30 ml Metformin HCl (Gl[facility]ophage) [facility] Last Admin: 04/30/18 16:19 Dose: 1,000 mg Ondansetron HCl (Zofran) 4 mg IVP Q6H PRN PRN Reason: Nausea/Vomiting Ofloxacin [Ocuflox 0 .3% Ophth Soln] 1 Drop 0 each EA EYE QID [facility] Last Admin: 04/30/18 22:13 Dose: 1 each Systane Gel Nighttime Protection Patient's Home Medication 0 each L EYE PRN PRN PRN Reason: Dry Eyes Last Admin: 04/30/18 16:19 Dose: 1 each Tamsulosin HCl (Flomax) 0.4 mg PO HS [facility] Last Admin: 04/30/18 22:14 Dose: 0.4 mg
[2018-05-01] MEDS: OFLOXACIN EA EYE SCH ×4 (09:34→21:00)
[2018-05-01] MEDS: Enoxaparin Sodium 40 MG/0.4 ML SYRINGE SC SCH (09:35)
[2018-05-01] MEDS: [UNRECOGNIZED DRUG - OTHER] L EYE PRN ×3 (09:35→21:01)
[2018-05-01] MEDS: Finasteride 5 MG TAB PO SCH (09:36)
[2018-05-01] MEDS: Clopidogrel Bisulfate 75 MG TAB PER TUBE SCH (09:36)
[2018-05-01] MEDS: metFORMIN 500 MG TAB PER TUBE SCH ×2 (09:36→18:22)
[2018-05-01] MEDS: Atorvastatin Calcium 40 MG TAB PER TUBE SCH (09:36)
[2018-05-01] MEDS: Famotidine 20 MG TAB PER TUBE SCH (09:37)
[2018-05-01] MEDS: Lisinopril 10 MG TAB PER TUBE SCH (09:37)
[2018-05-01] MEDS: Amlodipine 10 MG TAB PER TUBE SCH (09:37)
[2018-05-01] MEDS ORDERED: Fleet Enema 133 ML BOT PR SCH (14:30)
--- NOTE | 2018-05-01 16:37 | EKG ---
Test Reason : Blood Pressure : / mmHG Vent. Rate : 103 BPM Atrial Rate : 103 BPM P-R Int : 154 ms QRS Dur : 102 ms QT Int : 322 ms P-R-T Axes : 039 -37 078 degrees QTc Int : 421 ms Sinus tachycardia Left axis deviation Cannot rule out Anterior infarct , age undetermined Abnormal ECG Confirmed by YANIV JOHNS ([id number]) on 05/01/2018 4:37:04 PM Referred By: OCTAVIO Confirmed By:YANIV JOHNS
[2018-05-01] MEDS: Aspirin Chewable 81 MG TAB PER TUBE SCH (18:25)
[2018-05-01] MEDS: Tamsulosin HCl 0.4 MG CAP PO SCH (20:40)
[2018-05-01] MEDS: Metoprolol Tartrate 25 MG TAB PO SCH (20:40)
[2018-05-01] MEDS: Lorazepam 2 MG/ML VIAL SLOW IVP PRN (20:41)
[2018-05-01] MEDS: Docusate Sodium 100 MG/10 ML UDCUP PO SCH (21:01)
[2018-05-01] MEDS ORDERED: diphenhydrAMINE 50 MG/ML VIAL IVP SCH (22:30)
[2018-05-02] MEDS: Lorazepam 2 MG/ML VIAL SLOW IVP PRN ×2 (04:11→20:42)
[2018-05-02] MEDS: HumaLOG 300 UNITS/3 ML VIAL SC PRN ×4 (05:54→21:33)
[2018-05-02] MEDS: [UNRECOGNIZED DRUG - OTHER] L EYE PRN ×2 (05:55→20:40)
[2018-05-02] MEDS: metFORMIN 500 MG TAB PER TUBE SCH ×2 (07:01→17:32)
--- NOTE | 2018-05-02 07:40 | MRI ---
MRI BRAIN WITHOUT CONTRAST: HISTORY: Prior CVA. Altered mental status. COMPARISON: 04/17/2018 TECHNIQUE: A brain MRI is performed without intravenous Gadolinium administration. Multisequential, multiplanar imaging is performed. FINDINGS: No hemorrhage on the axial gradient echo sequence. The calvarium is a normal T1 marrow signal intensity. The midline brain parenchymal structures are u nremarkable. Central arterial flow voids are maintained. With respect to the intracranial internal carotid arteri es and the anterior circulation, there does appear to be questionable decreased flow-related signal i n the right intracranial vertebral artery. The basilar artery does have flow-related signal but it i s diminutive. Previously noted areas of restricted diffusion involving the left and right cerebellar hemisphere are once again demonstrated. The overall degree of restricted diffusion in the left and right cerebellar hemisphere has decreased. Correlation made with ADC map demonstrates some signal los s, suggesting possibly subacute infarcts in this region. There is a new area of restricted diffusion involving the posterior right corpus callosum. Stable T2 and FLAIR white matter hyperintensities. Mild mucosal disease of the sinuses. Minimal opacification of the right mastoid air cells. IMPRESSION: 1. Probable subacute infarct involving the left and right cerebellar hemisphere. 2. New acute infarct involving the posterior right corpus callosum. POS: [facility]
[2018-05-02] MEDS: Atorvastatin Calcium 40 MG TAB PER TUBE SCH (09:51)
[2018-05-02] MEDS: Clopidogrel Bisulfate 75 MG TAB PER TUBE SCH (09:51)
[2018-05-02] MEDS: Lisinopril 10 MG TAB PER TUBE SCH (09:51)
[2018-05-02] MEDS: Finasteride 5 MG TAB PO SCH (09:51)
[2018-05-02] MEDS: Famotidine 20 MG TAB PER TUBE SCH (09:51)
[2018-05-02] MEDS: Metoprolol Tartrate 25 MG TAB PO SCH ×2 (09:52→20:40)
[2018-05-02] MEDS: Docusate Sodium 100 MG/10 ML UDCUP PO SCH ×2 (09:53→20:41)
[2018-05-02] MEDS: Enoxaparin Sodium 40 MG/0.4 ML SYRINGE SC SCH (09:53)
[2018-05-02] MEDS: OFLOXACIN EA EYE SCH ×4 (09:53→20:40)
[2018-05-02] MEDS: Polyethylene Glycol 3350 17 GM Packet PER TUBE SCH (10:02)
--- NOTE | 2018-05-02 11:00 | PDOC.PN ---
- Subjective Encounter Start Date: 05/02/18 Encounter Start Time: 10:15 Subjective: sleepy, awakens easily -: follows verbal stimuli - Objective MAR Reviewed: Yes Vital Signs & Weight: Vital Signs (12 hours) Temp Pulse Resp BP Pulse Ox 05/02/18 10:57 95 05/02/18 07:56 98.4 F 124 H 20 131/63 94 L 05/02/18 04:00 97.8 F 104 H 19 131/62 94 L 05/02/18 00:00 98.2 F 100 19 139/65 97 Weight Admit Weight 202 lb 4.8 oz Weight 201 lb 9.6 oz I&O: 05/01/18 05/02/18 05/03/18 06:59 06:59 06:59 Intake Total 2738 1418 Balance 2738 1418 Result Diagrams: 05/01/18 04:43 05/01/18 04:43 Additional Labs: Accuchecks 05/02/18 05/02/18 05/01/18 10:45 05:31 19:53 POC Glucose 252 H 177 H 250 H 05/01/18 05/01/18 16:45 10:54 POC Glucose 239 H 230 H Phys Exam - Physical Examination HEENT: moist MMs left eye erythema and inability to close eyelids Neck: no JVD, supple Respiratory: no wheezing, no rales Cardiovascular: RRR, no significant murmur Gastrointestinal: soft, non-tender, positive bowel sounds peg+ Musculoskeletal: no edema, pulses present left hemiplegia, aphasia, dysphagia Dx/Plan (1) Acute CVA (cerebrovascular accident) Code(s): I63.9 - CEREBRAL INFARCTION, UNSPECIFIED Status: Acute Comment: left hemiplegia, dysphagia and aphasia, right corpus callosum cva (2) H/O: CVA (cerebrovascular accident) Code(s): Z86.73 - PRSNL HX OF TIA (TIA), AND CEREB INFRC W/O RESID DEFICITS Status: Chronic Comment: old left cerebellar and left middle cerebellar peduncle cva (3) Dyslipidemia Code(s): E78.5 - HYPERLIPIDEMIA, UNSPECIFIED Status: Chronic (4) Anemia Code(s): D64.9 - ANEMIA, UNSPECIFIED Status: Chronic Qualifiers: Anemia type: unspecified type Qualified Code(s): D64.9 - Anemia, unspecified (5) BPH (benign prostatic hyperplasia) Code(s): N40.0 - BENIGN PROSTATIC HYPERPLASIA WITHOUT LOWER URINRY TRACT SYMP Status: Chronic Qualifiers: Lower urinary tract symptom presence: symptoms absent Qualified Code(s): N40.0 - Benign prostatic hyperplasia without lower urinary tract symptoms (6) Diabetes mellitus type 2 in nonobese Code(s): E11.9 - TYPE 2 DIABETES MELLITUS WITHOUT COMPLICATIONS Status: Chronic (7) Dysphagia due to recent stroke Code(s): I69.391 - DYSPHAGIA FOLLOWING CEREBRAL INFARCTION Status: Acute Comment: s/p peg (8) Hypertension Code(s): I10 - ESSENTIAL (PRIMARY) HYPERTENSION Status: Chronic Qualifiers: Hypertension type: essential hypertension Qualified Code(s): I10 - Essential (primary) hypertension (9) Metabolic encephalopathy Code(s): G93.41 - METABOLIC ENCEPHALOPATHY Status: Acute Comment: resolving - Plan neurostable -: awaiting rehab placement, may dc if its ready -: needs to patch his left eye to prevent corneal abrasion -: continue asp, plavix, lipitor, cardizem, lopressor -: on proscar, flomax and metformin * . Review of Systems - Medications/Allergies Allergies/Adverse Reactions: Allergies Allergy/AdvReac Type Severity Reaction Status Date / Time No Known Allergies Allergy Verified 04/25/18 01:38 Medications: Current Medications Acetaminophen (Tylenol) 650 mg DE Q4H PRN PRN Reason: Headache/Fever/Mild Pain (1-3) Acetaminophen (Tylenol) 650 mg PO Q6H PRN PRN Reason: Fever/Mild Pain Last Admin: 04/29/18 09:44 Dose: 650 mg Aspirin (Aspirin Chewable) 81 mg PER TUBE 1800 [facility] Last Admin: 05/01/18 18:25 Dose: 81 mg Atorvastatin Calcium (Lipitor) 40 mg PER TUBE DAILY [facility] Last Admin: 05/02/18 09:51 Dose: 40 mg Bisacodyl (Dulcolax) 10 mg DE DAILYPRN PRN PRN Reason: Constipation Clopidogrel Bisulfate (Plavix) 75 mg PER TUBE DAILY [facility] Last Admin: 05/02/18 09:51 Dose: 75 mg Dextrose/Water (Dextrose 50%) 25 gm SLOW IVP PRN PRN PRN Reason: Hypoglycemia Diltiazem HCl (Cardizem) 30 mg PO ACHS [facility] Last Admin: 05/02/18 06:58 Dose: 30 mg Docusate Sodium (Colace Liquid) 100 mg PO BID [facility] Last Admin: 05/02/18 09:53 Dose: 100 mg Enoxaparin Sodium (Lovenox) 40 mg SC 0900 [facility] Last Admin: 05/02/18 09:53 Dose: 40 mg Famotidine (Pepcid) 20 mg PER TUBE DAILY [facility] Last Admin: 05/02/18 09:51 Dose: 20 mg Finasteride (Proscar) 5 mg PO DAILY [facility] Last Admin: 05/02/18 09:51 Dose: 5 mg Glucagon (Glucagon) 1 mg IM PRN PRN PRN Reason: Hypoglycemia Dextrose/Water (D5w) 1,000 mls @ 0 mls/hr IV .Q0M PRN PRN Reason: Hypoglycemia Insulin Human Lispro (Humalog) 0 units SC .MILD SLIDING SCALE PRN PRN Reason: Mild Correctional Scale Last Admin: 05/02/18 05:54 Dose: 2 unit Labetalol HCl (Normodyne) 20 mg SLOW IVP Q4H PRN PRN Reason: SBP > 180 and HR >/= 70 Last Admin: 04/26/18 17:14 Dose: 20 mg Lisinopril (Zestril) 10 mg PER TUBE DAILY [facility] Last Admin: 05/02/18 09:51 Dose: 10 mg Lorazepam (Ativan) 0.5 mg SLOW IVP Q6H PRN PRN Reason: ANXIETY/AGITATION Last Admin: 05/02/18 04:11 Dose: 0.5 mg Magnesium Hydroxide (Milk Of Magnesium) 30 ml PO DAILYPRN PRN PRN Reason: Constipation Last Admin: 04/29/18 12:32 Dose: 30 ml Metformin HCl (Glucophage) 1,000 mg PER TUBE [facility]ID[facility] Last Admin: 05/02/18 07:01 Dose: 1,000 mg Metoprolol Tartrate (Lopressor) 25 mg PO BID [facility] Last Admin: 05/02/18 09:52 Dose: 25 mg Ondansetron HCl (Zofran) 4 mg IVP Q6H PRN PRN Reason: Nausea/Vomiting Ofloxacin [Ocuflox 0 .3% Ophth Soln] 1 Drop 0 each EA EYE QID [facility] Last Admin: 05/02/18 09:53 Dose: 1 each Systane Gel Nighttime Protection Patient's Home Medication 0 each L EYE PRN PRN PRN Reason: Dry Eyes Last Admin: 05/02/18 05:55 Dose: 1 each Polyethylene Glycol (Miralax) 17 gm PER TUBE DAILY [facility] Last Admin: 05/02/18 10:02 Dose: 17 gm Tamsulosin HCl (Flomax) 0.4 mg PO HS [facility] Last Admin: 05/01/18 20:40 Dose: 0.4 mg
[2018-05-02] MEDS: Aspirin Chewable 81 MG TAB PER TUBE SCH (17:33)
[2018-05-02] MEDS: Tamsulosin HCl 0.4 MG CAP PO SCH (20:40)
[2018-05-03] MEDS ORDERED: Lorazepam 0.5 MG TAB PER TUBE PRN (03:08)
[2018-05-03] MEDS: Acetaminophen 325 MG TAB PO PRN (06:38)
[2018-05-03] MEDS: HumaLOG 300 UNITS/3 ML VIAL SC PRN ×2 (06:38→10:44)
[2018-05-03] MEDS ORDERED: Insulin Glargine 10 UNITS in Pre-Filled Syringe 1 EACH SC SCH (09:00)
[2018-05-03] MEDS: OFLOXACIN EA EYE SCH ×2 (09:32→12:25)
[2018-05-03] MEDS: Polyethylene Glycol 3350 17 GM Packet PER TUBE SCH (09:32)
[2018-05-03] MEDS: Enoxaparin Sodium 40 MG/0.4 ML SYRINGE SC SCH (09:32)
[2018-05-03] MEDS: Lisinopril 10 MG TAB PER TUBE SCH (09:33)
[2018-05-03] MEDS: Clopidogrel Bisulfate 75 MG TAB PER TUBE SCH (09:33)
[2018-05-03] MEDS: Finasteride 5 MG TAB PO SCH (09:33)
[2018-05-03] MEDS: Atorvastatin Calcium 40 MG TAB PER TUBE SCH (09:33)
[2018-05-03] MEDS: Docusate Sodium 100 MG/10 ML UDCUP PO SCH (09:33)
[2018-05-03] MEDS: metFORMIN 500 MG TAB PER TUBE SCH (09:33)
[2018-05-03] MEDS: Metoprolol Tartrate 25 MG TAB PO SCH (09:33)
[2018-05-03] MEDS: Famotidine 20 MG TAB PER TUBE SCH (09:33)
[2018-05-03] MEDS ORDERED: Sodium Chloride 0.9% 10 ML ONE (09:38)
[2018-05-03] MEDS ORDERED: Albuterol Sulfate 1.25 MG/3 ML NEB ONE (09:40)
--- NOTE | 2018-05-03 10:46 | PDOC.PN ---
- Subjective Encounter Start Date: 05/03/18 Encounter Start Time: 09:15 Subjective: lethargic, not in distress - Objective MAR Reviewed: Yes Vital Signs & Weight: Vital Signs (12 hours) Temp Pulse Resp BP BP Pulse Ox 05/03/18 09:33 136/67 05/03/18 07:44 97.4 F L 124 H 24 H 136/67 91 L 05/03/18 07:20 95 05/03/18 04:00 100.6 F H 125 H 18 128/61 92 L 05/03/18 00:00 99.1 F 107 H 18 139/61 94 L Weight Admit Weight 202 lb 4.8 oz Weight 208 lb 14.4 oz I&O: 05/02/18 05/03/18 05/04/18 06:59 06:59 06:59 Intake Total 1418 1108 Output Total 175 Balance 1418 933 Result Diagrams: 05/01/18 04:43 05/01/18 04:43 Additional Labs: Accuchecks 05/03/18 05/02/18 05/02/18 06:06 20:06 16:47 POC Glucose 184 H 237 H 266 H 05/02/18 10:45 POC Glucose 252 H Phys Exam - Physical Examination HEENT: PERRLA left eye erthema++, lid lag Neck: no JVD, supple Respiratory: no wheezing, no rales Cardiovascular: RRR, no significant murmur Gastrointestinal: soft, no distention, positive bowel sounds peg+ Musculoskeletal: no edema, pulses present left hemiplegia, dysphagia, aphasia Dx/Plan (1) Acute CVA (cerebrovascular accident) Code(s): I63.9 - CEREBRAL INFARCTION, UNSPECIFIED Status: Acute Comment: left hemiplegia, dysphagia and aphasia, right corpus callosum cva (2) H/O: CVA (cerebrovascular accident) Code(s): Z86.73 - PRSNL HX OF TIA (TIA), AND CEREB INFRC W/O RESID DEFICITS Status: Chronic Comment: old left cerebellar and left middle cerebellar peduncle cva (3) Dyslipidemia Code(s): E78.5 - HYPERLIPIDEMIA, UNSPECIFIED Status: Chronic (4) Anemia Code(s): D64.9 - ANEMIA, UNSPECIFIED Status: Chronic Qualifiers: Anemia type: unspecified type Qualified Code(s): D64.9 - Anemia, unspecified (5) BPH (benign prostatic hyperplasia) Code(s): N40.0 - BENIGN PROSTATIC HYPERPLASIA WITHOUT LOWER URINRY TRACT SYMP Status: Chronic Qualifiers: Lower urinary tract symptom presence: symptoms absent Qualified Code(s): N40.0 - Benign prostatic hyperplasia without lower urinary tract symptoms (6) Diabetes mellitus type 2 in nonobese Code(s): E11.9 - TYPE 2 DIABETES MELLITUS WITHOUT COMPLICATIONS Status: Chronic (7) Dysphagia due to recent stroke Code(s): I69.391 - DYSPHAGIA FOLLOWING CEREBRAL INFARCTION Status: Acute Comment: s/p peg (8) Hypertension Code(s): I10 - ESSENTIAL (PRIMARY) HYPERTENSION Status: Chronic Qualifiers: Hypertension type: essential hypertension Qualified Code(s): I10 - Essential (primary) hypertension (9) Metabolic encephalopathy Code(s): G93.41 - METABOLIC ENCEPHALOPATHY Status: Acute Comment: resolving - Plan peg feeding -: add lantus 10u bid ,will check formula being fed by peg -: free water via peg -: awaiting placement, may dc if ready -: continue asp, lipitor, plavix, lisinopril, cardizem, lopressor * . Review of Systems - Medications/Allergies Allergies/Adverse Reactions: Allergies Allergy/AdvReac Type Severity Reaction Status Date / Time No Known Allergies Allergy Verified 04/25/18 01:38 Medications: Current Medications Acetaminophen (Tylenol) 650 mg GA Q4H PRN PRN Reason: Headache/Fever/Mild Pain (1-3) Acetaminophen (Tylenol) 650 mg PO Q6H PRN PRN Reason: Fever/Mild Pain Last Admin: 05/03/18 06:38 Dose: 650 mg Aspirin (Aspirin Chewable) 81 mg PER TUBE 1800 [facility] Last Admin: 05/02/18 17:33 Dose: 81 mg Atorvastatin Calcium (Lipitor) 40 mg PER TUBE DAILY [facility] Last Admin: 05/03/18 09:33 Dose: 40 mg Bisacodyl (Dulcolax) 10 mg GA DAILYPRN PRN PRN Reason: Constipation Clopidogrel Bisulfate (Plavix) 75 mg PER TUBE DAILY [facility] Last Admin: 05/03/18 09:33 Dose: 75 mg Dextrose/Water (Dextrose 50%) 25 gm SLOW IVP PRN PRN PRN Reason: Hypoglycemia Diltiazem HCl (Cardizem) 30 mg PO ACHS [facility] Last Admin: 05/03/18 09:33 Dose: 30 mg Docusate Sodium (Colace Liquid) 100 mg PO BID [facility] Last Admin: 05/03/18 09:33 Dose: 100 mg Enoxaparin Sodium (Lovenox) 40 mg SC 0900 [facility] Last Admin: 05/03/18 09:32 Dose: 40 mg Famotidine (Pepcid) 20 mg PER TUBE DAILY [facility] Last Admin: 05/03/18 09:33 Dose: 20 mg Finasteride (Proscar) 5 mg PO DAILY [facility] Last Admin: 05/03/18 09:33 Dose: 5 mg Glucagon (Glucagon) 1 mg IM PRN PRN PRN Reason: Hypoglycemia Dextrose/Water (D5w) 1,000 mls @ 0 mls/hr IV .Q0M PRN PRN Reason: Hypoglycemia Insulin Glargine 10 units/ (Miscellaneous Medication) 0.1 mls @ 0 mls/hr SC BID [facility] Last Admin: 05/03/18 09:34 Dose: 0.1 mls Insulin Human Lispro (Humalog) 0 units SC .MILD SLIDING SCALE PRN PRN Reason: Mild Correctional Scale Last Admin: 05/03/18 06:38 Dose: 2 unit Labetalol HCl (Normodyne) 20 mg SLOW IVP Q4H PRN PRN Reason: SBP > 180 and HR >/= 70 Last Admin: 04/26/18 17:14 Dose: 20 mg Lisinopril (Zestril) 10 mg PER TUBE DAILY [facility] Last Admin: 05/03/18 09:33 Dose: 10 mg Lorazepam (Ativan) 0.5 mg PER TUBE Q6H PRN PRN Reason: ANXIETY/AGITATION Magnesium Hydroxide (Milk Of Magnesium) 30 ml PO DAILYPRN PRN PRN Reason: Constipation Last Admin: 04/29/18 12:32 Dose: 30 ml Metformin HCl (Glucophage) 1,000 mg PER TUBE BID[facility] Last Admin: 05/03/18 09:33 Dose: 1,000 mg Metoprolol Tartrate (Lopressor) 25 mg PO BID [facility] Last Admin: 05/03/18 09:33 Dose: 25 mg Ondansetron HCl (Zofran) 4 mg IVP Q6H PRN PRN Reason: Nausea/Vomiting Ofloxacin [Ocuflox 0 .3% Ophth Soln] 1 Drop 0 each EA EYE QID [facility] Last Admin: 05/03/18 09:32 Dose: 1 each Systane Gel Nighttime Protection Patient's Home Medication 0 each L EYE PRN PRN PRN Reason: Dry Eyes Last Admin: 05/02/18 20:40 Dose: 1 each Polyethylene Glycol (Miralax) 17 gm PER TUBE DAILY [facility] Last Admin: 05/03/18 09:32 Dose: 17 gm Tamsulosin HCl (Flomax) 0.4 mg PO HS [facility] Last Admin: 05/02/18 20:40 Dose: 0.4 mg
[2018-05-03 11:31] VITALS: BMI 32.3
[2018-05-03 11:45] VITALS: BP 130/65; TEMP 98.5
--- NOTE | 2018-05-03 13:05 | EKG ---
Test Reason : Blood Pressure : / mmHG Vent. Rate : 125 BPM Atrial Rate : 125 BPM P-R Int : 148 ms QRS Dur : 092 ms QT Int : 296 ms P-R-T Axes : 026 -37 087 degrees QTc Int : 427 ms Sinus tachycardia Non-specific intra-ventricular conduction delay Left axis deviation Abnormal ECG Confirmed by YANIV JOHNS ([id number]) on 05/03/2018 1:04:30 PM Referred By: JUAN F Confirmed By:YANIV JOHNS
--- NOTE | 2018-05-03 22:14 | DIS ---
DATE OF ADMISSION: 04/25/2018 DATE OF DISCHARGE: 05/03/2018 DISCHARGE DISPOSITION: To inpatient rehab. PRIMARY DISCHARGE DIAGNOSES: Acute cerebrovascular accident with left hemiplegia, dysphagia, and aphasia. The cerebrovascular accident was in the right corpus callosum area. SECONDARY DISCHARGE DIAGNOSES: 1. History of prior cerebrovascular accident in the left cerebellar and left middle cerebellar peduncle. 2. Chronic anemia. 3. Dyslipidemia. 4. Metabolic encephalopathy, resolving. 5. Hypertension. 6. Status post PEG for dysphagia. 7. Benign prostatic hypertrophy. PROCEDURES DONE DURING HOSPITALIZATION: MRI brain without contrast done showed subacute infarct involving left and right cerebellar hemisphere, new acute infarct involving posterior right corpus callosum. CT brain without contrast on admission showed chronic findings with no acute intracranial abnormalities. There was lobular encephalomalacia within the left cerebellar hemisphere and left middle cerebellar peduncle, which are continuing to evolve. Diffuse cortical atrophy and chronic ischemic small-vessel disease were seen. The patient has had PEG tube placed on 04/27/[address] Leon. Hemoglobin and hematocrit 10 and 30, platelet count 206, and MCV is 84. Discharge BUN and creatinine are 14 and 0.8. Troponin I was indeterminate, peaking up to 0.03. Initial BUN and creatinine were 37 and 1.4. DISCHARGE MEDICATIONS: 1. Pepcid 20 mg twice daily. 2. Systane eye drops to left eye. 3. Flomax 0.4 mg p.o. at bedtime. 4. Aspirin 81 mg p.o. daily. 5. Lipitor 40 mg p.o. daily. 6. Plavix 75 mg p.o. daily. 7. Cardizem 30 mg p.o. before meals and at bedtime. 8. Lopressor 25 mg twice daily. 9. Lisinopril 10 mg daily. 10. Metformin 1000 mg twice daily. 11. MiraLAX 17 g daily. 12. Proscar 5 mg daily. 13. Colace 100 mg p.o. twice daily,. ALLERGIES: NO KNOWN DRUG ALLERGIES. DISCHARGE PLAN: The patient is to follow up with primary care physician in 1 week. INPATIENT CONSULT: Dr. Xie for Neurology and Dr. Leon for Gastroenterology. BRIEF COURSE DURING HOSPITALIZATION: The patient initially was brought to emergency room on the for altered mental state, weight loss, and generalized weakness. Initial CT done showed chronic findings with no acute infarct. MRI done showed new acute infarct in the corpus callosum area. The patient has left hemiplegia, dysphagia, and aphasia. He has had Gastroenterology consultation for PEG tube placement. He was also evaluated by Dr. Xie for Neurology. He has severe deconditioning and is being discharged to inpatient rehab for further recuperation. His medications were optimized during his stay here. The patient has sinus tachycardia and has been placed on Cardizem and Lopressor. Per family member, this is a chronic issue and not something acute though no sign of atrial fibrillation or flutter. He is otherwise hemodynamically stable. His overall prognosis is guarded. Please see a [id number] documentation for the day of discharge on [employer]. A total of 35 minutes was spent on discharge plan. Job ID: [id number]
== END 2018-05-03 14:57 | DRG 64 ==
LOC: ERS 16:44 → 2SE 21:30 → OBSVTOIN 04-25 17:12
PROVIDERS: ADMIT Hospitalist; ATTEND Hospitalist
PROC: 0DH63UZ Insertion of Feeding Device into Stomach, Percutaneous Approach (ICD-10-PCS; principal; 2018-04-27)
PROC: 0DJ08ZZ Inspection of Upper Intestinal Tract, Via Natural or Artificial Opening Endoscopic (ICD-10-PCS; 2018-04-27)
DX: I63.9 Cerebral infarction, unspecified (principal); G93.41 Metabolic encephalopathy; G81.94 Hemiplegia, unspecified affecting left nondominant side; E86.0 Dehydration; R47.01 Aphasia; I10 Essential (primary) hypertension; E11.9 Type 2 diabetes mellitus without complications; E87.5 Hyperkalemia; L40.50 Arthropathic psoriasis, unspecified; R13.11 Dysphagia, oral phase; K44.9 Diaphragmatic hernia without obstruction or gangrene; D64.9 Anemia, unspecified; N40.0 Benign prostatic hyperplasia without lower urinary tract symptoms; R00.0 Tachycardia, unspecified; Z86.73 Personal history of transient ischemic attack (TIA), and cerebral infarction without residual deficits; Z87.891 Personal history of nicotine dependence; Z79.84 Long term (current) use of oral hypoglycemic drugs; Z79.02 Long term (current) use of antithrombotics/antiplatelets; Z79.82 Long term (current) use of aspirin; Z79.899 Other long term (current) drug therapy
CPT/HCPCS: 36415; 36416; 70450; 70551; 71045; 80048; 80053; 81003; 81015; 82550; 82553; 83036; 84484; 85025; 85610; 85730; 93005; 93010; 96360; 96361; J1200; J1650; J1825; J2001; J2060; J2405; J2704